=== PATIENT | female | born 1990 | race Two or more races ===

== ENCOUNTER 2024-01-17 08:09 | Outpatient (REF) | payer OTHER, SELFPAY ==
[2024-01-17 08:54] LABS: HCG Quantitative 101 mIU/mL
[2024-01-21 22:54] LABS: Estradiol Ultra Sensitive 624 pg/mL
[2024-01-26 19:29] LABS: Progesterone 61.2 ng/mL
== END 2024-01-17 08:10 | disposition home or self-care (01) ==
LOC: HO.LAB 08:09
PROVIDERS: Visit Provider Obstetrics & Gynecology
DX: Z31.83 Encounter for assisted reproductive fertility procedure cycle (principal); N97.9 Female infertility, unspecified
CPT/HCPCS: 36415; 82670; 84144; 84702